=== PATIENT | male | born 1975 | race Caucasian/White ===

== ENCOUNTER 2020-07-30 20:05 | Emergency (ER) | payer MEDICAID ==
[~2020-07-30] VITALS: Ht 180.3 cm; Wt 100.0 kg
[~2020-07-30 20:05] MED LIST: HYDR-4383 PO; IBUP-1051 PO; NO HOME MEDS
[2020-07-30] MEDS ORDERED: LIDOcaine 1% W/epiNEPHrine 1:200,000 10ml vial IJ ONE (20:55)
[2020-07-30] MEDS ORDERED: cephalexin 250mg capsule PO ONE (21:15)
[2020-07-30] MEDS ORDERED: sulfamethoxazole/trimethoprim DS (800/160mg) tablet PO ONE (21:15)
[2020-07-30] MEDS ORDERED: CEPH500C5 PO (21:19)
[2020-07-30] MEDS ORDERED: SULF1TAB49 PO (21:19)
[2020-07-30 21:27] VITALS: BP 116/65
== END 2020-07-30 21:28 | disposition home or self-care (01) ==
LOC: ER 20:05
DX: L02.411 Cutaneous abscess of right axilla (principal); L03.111 Cellulitis of right axilla; Z72.89 Other problems related to lifestyle; Z79.899 Other long term (current) drug therapy
CPT/HCPCS: 10060; 76882; 99284